=== PATIENT | female | born 1990 | race Caucasian/White ===

== ENCOUNTER 2018-11-14 06:37 | Inpatient (IN) | payer OTHER ==
[~2018-11-14] VITALS: Ht 149.9 cm; Wt 71.2 kg
[2018-11-14] MEDS ORDERED: PRENATAL PLUS1 EAC2 PO (07:57)
== END 2018-11-16 12:05 | disposition home or self-care (01) | DRG 807 ==
LOC: OB/GYN 06:37 → LDR 06:37 → OB/GYN 17:54
PROVIDERS: ADMIT Obstetrics & Gynecology
PROC: 10E0XZZ Delivery of Products of Conception, External Approach (ICD-10-PCS; principal; 2018-11-15)
PROC: 0HQ9XZZ Repair Perineum Skin, External Approach (ICD-10-PCS; 2018-11-15)
PROC: 10907ZC Drainage of Amniotic Fluid, Therapeutic from Products of Conception, Via Natural or Artificial Opening (ICD-10-PCS; 2018-11-15)
PROC: 3E0P7VZ Introduction of Hormone into Female Reproductive, Via Natural or Artificial Opening (ICD-10-PCS; 2018-11-15)
PROC: 3E033VJ Introduction of Other Hormone into Peripheral Vein, Percutaneous Approach (ICD-10-PCS; 2018-11-15)
PROC: 4A1HXCZ Monitoring of Products of Conception, Cardiac Rate, External Approach (ICD-10-PCS; 2018-11-15)
DX: O70.0 First degree perineal laceration during delivery (principal); Z37.0 Single live birth; Z3A.39 39 weeks gestation of pregnancy